=== PATIENT | female | born 1935 | race Caucasian/White ===

== ENCOUNTER → 2016-07-31 09:03 | Outpatient (CLI) | payer MEDICARE, OTHER ==
[2016-02-08 11:26] VITALS: BMI 23.9
[~2016-07-31 09:03] MED LIST: CALCIUM 600+D T1 TA1 PO; CENTRUM SILVER1 TA2 PO; VITAMIN D2000 UNIT PO; ZOCOR40 MG PO
== END | disposition home or self-care (01) ==
LOC: D.US 09:03
DX: I71.4 Abdominal aortic aneurysm, without rupture (principal)

== ENCOUNTER 2016-10-17 09:26 | Outpatient (CLI) | payer MEDICARE, OTHER ==
[~2016-10-17] VITALS: Ht 162.6 cm; Wt 61.4 kg
[2016-10-17 09:56] VITALS: BP 187/75; Ht 162.6 cm; Wt 61.4 kg
== END 2016-10-17 10:12 | disposition home or self-care (01) ==
LOC: D.OPS 09:26
DX: M81.0 Age-related osteoporosis without current pathological fracture (principal)

== ENCOUNTER → 2017-01-22 08:18 | Outpatient (CLI) | payer MEDICARE, OTHER ==
[2016-10-17 09:56] VITALS: BMI 23.2
== END | disposition home or self-care (01) ==
LOC: D.CT 08:18
DX: I71.4 Abdominal aortic aneurysm, without rupture (principal)

== ENCOUNTER 2017-04-26 12:23 | Outpatient (CLI) | payer MEDICARE, OTHER ==
[~2017-04-26] VITALS: Ht 162.6 cm; Wt 60.9 kg
[2017-04-26 13:17] VITALS: BP 191/84; Ht 162.6 cm; Wt 60.9 kg
== END 2017-04-26 13:25 | disposition home or self-care (01) ==
LOC: D.OPS 12:23
DX: M81.0 Age-related osteoporosis without current pathological fracture (principal)

== ENCOUNTER 2017-12-12 08:50 | Outpatient (CLI) | payer MEDICARE ==
[~2017-12-12] VITALS: Ht 162.6 cm; Wt 60.9 kg
[2017-12-12 10:17] VITALS: BP 189/71; Ht 162.6 cm; Wt 60.9 kg
== END 2017-12-12 10:40 | disposition home or self-care (01) ==
LOC: D.OPS 08:50 → D.US 09:30 → D.OPS 10:40
DX: M81.0 Age-related osteoporosis without current pathological fracture (principal); Z01.812 Encounter for preprocedural laboratory examination

== ENCOUNTER → 2018-07-02 12:24 | Outpatient (CLI) | payer MEDICARE ==
[~2018-07-02] VITALS: Ht 162.6 cm; Wt 61.4 kg
[2018-07-02 12:50] VITALS: BP 170/67; Ht 162.6 cm; Wt 61.4 kg
== END | disposition home or self-care (01) ==
LOC: D.OPS 12:24
DX: M81.0 Age-related osteoporosis without current pathological fracture (principal); Z01.812 Encounter for preprocedural laboratory examination

== ENCOUNTER → 2018-12-05 09:07 | Outpatient (CLI) | payer MEDICARE ==
[2018-07-02 12:50] VITALS: BMI 23.2
== END | disposition home or self-care (01) ==
LOC: D.US 09:07
PROVIDERS: ATTEND Internal Medicine Cardiovascular Disease
DX: I71.4 Abdominal aortic aneurysm, without rupture (principal); I70.209 Unspecified atherosclerosis of native arteries of extremities, unspecified extremity

== ENCOUNTER → 2018-12-17 07:31 | Outpatient (CLI) | payer MEDICARE ==
[2018-07-02 12:50] VITALS: BMI 23.2
== END | disposition home or self-care (01) ==
LOC: D.CT 07:31
PROVIDERS: ATTEND Internal Medicine Cardiovascular Disease
DX: I70.213 Atherosclerosis of native arteries of extremities with intermittent claudication, bilateral legs (principal)

== ENCOUNTER → 2020-03-03 07:52 | Outpatient (CLI) | payer OTHER ==
[2018-07-02 12:50] VITALS: BMI 23.2
== END | disposition home or self-care (01) ==
LOC: D.MRI 07:52
PROVIDERS: ATTEND Orthopaedic Surgery
DX: Z87.828 Personal history of other (healed) physical injury and trauma (principal)